=== PATIENT | female | born 1945 | race Caucasian/White ===

== ENCOUNTER 2018-08-19 11:05 | Emergency (ER) | payer MEDICARE, BC ==
[2018-08-19] MEDS ORDERED: CEFEPIME 2GM/50 ML (PMX) 50 ML IVPB (11:46)
[2018-08-19] MEDS ORDERED: SODIUM CHLORIDE 0.9% 1L BAG IV* (11:46)
[2018-08-19] MEDS ORDERED: VANCOMYCIN 1 GM (PMX) 250 ML IVPB (12:00)
== END 2018-08-19 13:20 | disposition home or self-care (01) ==
LOC: E/R 11:05
DX: M25.572 Pain in left ankle and joints of left foot (principal); I11.0 Hypertensive heart disease with heart failure; I50.9 Heart failure, unspecified; E11.9 Type 2 diabetes mellitus without complications; Z79.82 Long term (current) use of aspirin; Z79.84 Long term (current) use of oral hypoglycemic drugs
CPT/HCPCS: 73610; 93971; 99284-25